=== PATIENT | female | born 1995 | race Two or more races ===

== ENCOUNTER → 2016-10-20 | Outpatient (CLI) | payer OTHER | END | disposition home or self-care (01) | LOC: CFH 09:53 | PROVIDERS: ATTEND Nurse Practitioner | DX: N63 Unspecified lump in breast (principal) ==

== ENCOUNTER 2017-04-01 11:50 | Emergency (ER) | payer OTHER ==
[~2017-04-01] VITALS: Ht 162.6 cm; Wt 87.5 kg
[2017-04-01 11:51] VITALS: BP 126/84
[2017-04-01] MEDS ORDERED: LIDOCAINE 1%-EPI 1:100K, 20ML SQ ONE ×2 (12:30)
[2017-04-01] MEDS ORDERED: LIDOCAINE 1%, 20ML ONE (12:30)
[2017-04-01] MEDS ORDERED: DIPH,PERTUSS(ACELL),TET VAC/PF 0.5 ML IM-VACC ONE ×3 (12:30→12:41)
[2017-04-01] MEDS ORDERED: PLEASE ENTER ALLERGIES MC SCH ×2 (13:00)
[2017-04-01] MEDS ORDERED: BACITRACIN ZINC OINT 500U/GM, 0.9 GM ONE (13:23)
== END 2017-04-01 13:30 | disposition home or self-care (01) ==
LOC: ED 12:20
DX: S81.011A Laceration without foreign body, right knee, initial encounter (principal); W45.8XXA Other foreign body or object entering through skin, initial encounter; Y93.89 Activity, other specified; Y92.009 Unspecified place in unspecified non-institutional (private) residence as the place of occurrence of the external cause; Y99.9 Unspecified external cause status
CPT/HCPCS: 12002; 90471; 90715